=== PATIENT | male | born 1975 | race Caucasian/White ===

== ENCOUNTER 2016-09-25 14:36 | Emergency (ER) | payer MEDICARE | END 2016-09-25 17:14 | disposition home or self-care (01) | LOC: D.ER 14:36 | DX: M25.572 Pain in left ankle and joints of left foot (principal); F17.200 Nicotine dependence, unspecified, uncomplicated ==

== ENCOUNTER 2016-12-18 09:13 | Emergency (ER) | payer MEDICARE | END 2016-12-18 09:55 | disposition home or self-care (01) | LOC: D.ER 09:13 | DX: L03.114 Cellulitis of left upper limb (principal) ==

== ENCOUNTER 2017-01-04 10:02 | Emergency (ER) | payer MEDICARE | END 2017-01-04 15:00 | disposition left against medical advice (07) | LOC: D.ER 10:02 | DX: Z02.9 Encounter for administrative examinations, unspecified (principal) ==

== ENCOUNTER 2017-01-12 16:35 | Emergency (ER) | payer MEDICARE ==
[2017-01-12 17:37] LABS: BASOPHILS 0.1 % (0-2); EOSINOPHILS 0.3 % (0-7); HEMATOCRIT 41.1 % (42.0-54.0); HEMOGLOBIN 14.2 g/dL (13.5-17.5); IMMATURE GRANULOCYTES 0.3 % (0-5); MCH 31.2 pg (26.0-34.0); MCHC 34.5 g/dL (31.0-37.0); MCV 90.3 fL (80.0-100.0); MEAN PLATELET VOLUME 10.1 fL (7.4-10.4); MONOCYTES 14.1 % (2-11); NEUTROPHILS 62.2 % (40-80); PLATELET COUNT 212 10x3/uL (130-400); RBC 4.55 10x6/uL (4.20-6.10); RDW 13.6 % (11.5-14.5); WBC 7.9 10x3/uL (4.8-10.8)
[2017-01-12 17:53] LABS: ALBUMIN 4.4 g/dL (3.4-5.0); ALKALINE PHOSPHATASE 75 U/L (46-116); ALT (SGPT) 34 U/L (10-68); CALC OSMOLALITY 279 mosm/kg (275-300); CALCIUM 9.5 mg/dL (8.5-10.1); CARBON DIOXIDE 25.3 mmol/L (21.0-32.0); CHLORIDE - SERUM 101 mmol/L (98-107); GLUCOSE 125 mg/dL (74-106); POTASSIUM - SERUM 3.4 mmol/L (3.5-5.1); PROTEIN - SERUM 7.9 g/dL (6.4-8.2); SODIUM 138 mmol/L (136-145); UREA NITROGEN 22 mg/dL (7-18); eGFR NON AFRICAN AMERICAN 87 mL/min (90-120)
[2017-01-12 18:20] LABS: UDS - AMPHET POSITIVE QUAL (NEGATIVE); UDS - BARB NEGATIVE QUAL (NEGATIVE); UDS - BENZO NEGATIVE QUAL (NEGATIVE); UDS - COCAINE NEGATIVE QUAL (NEGATIVE); UDS - METH NEGATIVE QUAL (NEGATIVE); UDS - OPIATE NEGATIVE QUAL (NEGATIVE); UDS - PCP NEGATIVE QUAL (NEGATIVE); UDS - THC NEGATIVE QUAL (NEGATIVE)
[2017-01-12 18:32] LABS: APPEARANCE HAZY (CLEAR); BILIRUBIN NEGATIVE (NEGATIVE); COLOR DK YELLOW (YELLOW); GLUCOSE NEGATIVE (NEGATIVE); KETONE MODERATE mg/dL (NEGATIVE); LEUKOCYTE ESTERASE TRACE (NEGATIVE); NITRITE NEGATIVE (NEGATIVE); PROTEIN TRACE mg/dL (NEGATIVE); UROBILINOGEN NORMAL (NORMAL)
[2017-01-12 18:33] LABS: BACTERIA FEW /hpf (NONE SEEN); EPITHELIAL CELLS 0-5 /hpf (0-5); HYALINE CAST OCC /lpf (NONE SEEN); MUCUS >1+ /lpf (NONE SEEN); RED CELLS - URINE 0-5 /hpf (0-5); SPERMATOZOA PRESENT /hpf (NONE SEEN); WHITE CELLS - URINE 0-5 /hpf (0-5)
== END 2017-01-12 19:37 | disposition home or self-care (01) ==
LOC: D.ER 16:35
PROVIDERS: Emergency Medicine
DX: F19.10 Other psychoactive substance abuse, uncomplicated (principal); F32.9 Major depressive disorder, single episode, unspecified

== ENCOUNTER 2017-01-24 11:49 | Emergency (ER) | payer MEDICARE | END 2017-01-24 15:10 | disposition home or self-care (01) | LOC: D.ER 11:49 | DX: K08.89 Other specified disorders of teeth and supporting structures (principal); F17.200 Nicotine dependence, unspecified, uncomplicated ==

== ENCOUNTER 2017-05-01 07:58 | Emergency (ER) | payer MEDICARE | END 2017-05-01 08:31 | disposition home or self-care (01) | LOC: D.ER 07:58 | DX: M79.672 Pain in left foot (principal) ==

== ENCOUNTER 2017-06-05 10:14 | Emergency (ER) | payer MEDICARE | END 2017-06-05 11:45 | disposition left against medical advice (07) | LOC: D.ER 10:14 | DX: M19.072 Primary osteoarthritis, left ankle and foot (principal); F17.200 Nicotine dependence, unspecified, uncomplicated ==

== ENCOUNTER 2017-12-09 10:25 | Emergency (ER) | payer MEDICARE | END 2017-12-09 11:33 | disposition home or self-care (01) | LOC: D.ER 10:25 | DX: S05.02XA Injury of conjunctiva and corneal abrasion without foreign body, left eye, initial encounter (principal); X58.XXXA Exposure to other specified factors, initial encounter; Y93.89 Activity, other specified; Y92.89 Other specified places as the place of occurrence of the external cause; I10 Essential (primary) hypertension ==

== ENCOUNTER 2017-12-09 21:24 | Emergency (ER) | payer MEDICARE ==
[2017-12-10 01:22] LABS: BASOPHILS 0.2 % (0-2); EOSINOPHILS 2.8 % (0-7); HEMATOCRIT 41.7 % (42.0-54.0); HEMOGLOBIN 14.3 g/dL (13.5-17.5); IMMATURE GRANULOCYTES 0.1 % (0-5); LYMPHOCYTES 30.9 % (15-50); MCHC 34.3 g/dL (31.0-37.0); MCV 90.5 fL (80.0-100.0); MEAN PLATELET VOLUME 10.1 fL (7.4-10.4); MONOCYTES 8.2 % (2-11); NEUTROPHILS 57.8 % (40-80); PLATELET COUNT 254 10x3/uL (130-400); RBC 4.61 10x6/uL (4.20-6.10); RDW 13.2 % (11.5-14.5); WBC 9.4 10x3/uL (4.8-10.8)
[2017-12-10 01:31] LABS: ALBUMIN 4.4 g/dL (3.4-5.0); ALKALINE PHOSPHATASE 73 U/L (46-116); ALT (SGPT) 37 U/L (10-68); CALC OSMOLALITY 276 mosm/kg (275-300); CALCIUM 9.3 mg/dL (8.5-10.1); CHLORIDE - SERUM 102 mmol/L (98-107); GLUCOSE 105 mg/dL (74-106); POTASSIUM - SERUM 3.7 mmol/L (3.5-5.1); PROTEIN - SERUM 7.8 g/dL (6.4-8.2); SODIUM 138 mmol/L (136-145); UREA NITROGEN 16 mg/dL (7-18); eGFR NON AFRICAN AMERICAN 87 mL/min (90-120)
[2017-12-10 05:17] LABS: APPEARANCE CLEAR (CLEAR); COLOR DK YELLOW (YELLOW); SPECIFIC GRAVITY 1.015 (1.005-1.020)
[2017-12-10 05:18] LABS: BILIRUBIN 2+ (NEGATIVE); GLUCOSE NEGATIVE (NEGATIVE); KETONE NEGATIVE (NEGATIVE); NITRITE NEGATIVE (NEGATIVE); PROTEIN NEGATIVE (NEGATIVE); UROBILINOGEN NORMAL (NORMAL)
[2017-12-10 05:28] LABS: UDS - AMPHET POSITIVE QUAL (NEGATIVE); UDS - BARB NEGATIVE QUAL (NEGATIVE); UDS - BENZO NEGATIVE QUAL (NEGATIVE); UDS - COCAINE NEGATIVE QUAL (NEGATIVE); UDS - OPIATE POSITIVE QUAL (NEGATIVE); UDS - PCP NEGATIVE QUAL (NEGATIVE); UDS - THC POSITIVE QUAL (NEGATIVE)
== END 2017-12-10 07:50 | disposition short-term general hospital (02) ==
LOC: D.ER 21:24
PROVIDERS: Family Medicine
DX: F31.9 Bipolar disorder, unspecified (principal); F23 Brief psychotic disorder; R45.851 Suicidal ideations; I10 Essential (primary) hypertension

== ENCOUNTER 2018-07-16 02:14 | Emergency (ER) | payer MEDICARE ==
[~2018-07-16] VITALS: Ht 185.4 cm; Wt 104.3 kg
[2018-07-16 02:19] VITALS: Ht 185.4 cm; Wt 104.3 kg
[2018-07-16] MEDS ORDERED: NAPROSYN500 MG PO (02:36)
[2018-07-16] MEDS ORDERED: CLEOCIN HCL300 MG PO (02:36)
[2018-07-16 02:44] VITALS: BP 128/75
== END 2018-07-16 02:45 | disposition home or self-care (01) ==
LOC: D.ER 02:14
DX: L02.415 Cutaneous abscess of right lower limb (principal); G89.29 Other chronic pain; F17.200 Nicotine dependence, unspecified, uncomplicated

== ENCOUNTER → 2018-10-23 07:48 | Outpatient (CLI) | payer MEDICARE ==
[~2018-10-23 07:48] MED LIST: CLEOCIN HCL300 MG PO; NAPROSYN500 MG PO
== END | disposition home or self-care (01) ==
LOC: D.US 07:48
PROVIDERS: ATTEND Family Medicine
DX: R10.11 Right upper quadrant pain (principal)

== ENCOUNTER → 2018-11-27 09:32 | Outpatient (CLI) | payer MEDICARE ==
--- NOTE | 2018-11-26 10:08 | NUR ---
PATIENT'S PIPIDA SCAN WAS SCHEDULED FOR 11/26/18 AT 0930. UPON ARRIVING TO THE DEPARTMENT AND SPEAKING WITH HIM, HE STATED HE WAS NOT FASTING. HAD COFFEE WITH CREAM AND SUGAR AT APPROX 0730. BECAUSE OF THIS, HIS APPOINTMENT NEEDED TO BE RESCHEDULED. HE WAS OFFERED TO COME BACK LATER IN THE AFTERNOON BUT OPTED FOR TOMORROW, 11/27/18, AT 0930.
== END | disposition home or self-care (01) ==
LOC: D.NM 11-26 09:29
PROVIDERS: ATTEND Family Medicine
DX: R10.11 Right upper quadrant pain (principal)

== ENCOUNTER 2019-01-28 09:55 | Day surgery (SDC) | payer MEDICARE ==
[~2019-01-28] VITALS: Ht 185.4 cm; Wt 117.5 kg
[2019-01-28 11:46] VITALS: BP 120/81; Ht 185.4 cm; Wt 117.5 kg
[2019-01-28] MEDS ORDERED: HYDROCODON-ACE1 EAC7 PO (13:30)
--- NOTE | 2019-01-29 07:50 | OP ---
PATIENT NAME: JULIAN WEST MEDICAL RECORD: [id number] :73 LOCATION:[facility] ADMISSION DATE: SURGEON: ARLETTE SINGH MD DATE OF OPERATION: 01/28/2019 SURGEON: Arlette Singh MD (JJ) PREOPERATIVE DIAGNOSIS: Posterior left flank mass. POSTOPERATIVE DIAGNOSIS: Posterior left flank sebaceous cyst. ANESTHESIA: General. COMPLICATIONS: None. SPECIMENS: Sebaceous cyst, 8 x 6 x 4 cm. Case was clean. PROCEDURE: Excisional biopsy of sebaceous cyst, 8 x 6 x 4 cm. OPERATIVE COURSE: After consent was obtained, the patient was taken to the operating room and placed in the supine position on the operating table. Next, general anesthesia was given. The patient was then placed in right lateral decubitus position. A time-out was taken to confirm the correct patient and procedure. A 20 cc of local anesthetic was injected above the posterior left back mass. Skin incision was made with #10 blade scalpel. Dissection was then continued with Metzenbaum scissors. A cyst wall was immediately encountered at the edge of the dermis. The cyst was then circumferentially dissected using sharp scissor dissection. The cyst was excised in its entirety and sent for permanent pathology. The cyst size was 8 x 6 x 4 cm. The subcutaneous tissue was then copiously irrigated and suctioned. Hemostasis was obtained with electrocautery. The wound was closed in 3 layers. The deep subcutaneous layer was closed with 3-0 Vicryl suture. Superficial was closed with 3-0 Vicryl suture. Skin was closed with 4-0 Monocryl, Mastisol, and Steri-Strips. At the end of the case, all needle and instrument counts were correct. No complications occurred. The patient was extubated and transferred to the PACU in satisfactory condition. TRANSINT:[id number] Voice Confirmation ID: [id number] DOCUMENT ID: [id number] ARLETTE SINGH MD at 0750 CC: [id number] DICTATION DATE: 01/28/19 1335 [employer] MA[employer]ER: 01/28/19 1422 [facility] [place] 01/28/19 [facility] [address] [place] [address]
== END 2019-01-28 16:39 | disposition home or self-care (01) ==
LOC: D.OPS 09:55 → D.PAN 11:45 → D.OPS 11:45
PROVIDERS: ATTEND Surgery
DX: L72.3 Sebaceous cyst (principal); Z01.812 Encounter for preprocedural laboratory examination

== ENCOUNTER 2019-01-30 16:54 | Emergency (ER) | payer MEDICARE ==
[~2019-01-30] VITALS: Ht 185.4 cm; Wt 118.2 kg
[~2019-01-30 16:54] MED LIST changes: +HYDROCODON-ACE1 EAC7 PO
[2019-01-30 17:05] VITALS: Ht 185.4 cm; Wt 118.2 kg
[2019-01-30] MEDS ORDERED: AMOXICILLIN500 M1 PO (17:07)
[2019-01-30 17:39] LABS: BASOPHILS 0.3 % (0-2); EOSINOPHILS 1.7 % (0-7); HEMATOCRIT 42.2 % (42.0-54.0); HEMOGLOBIN 14.8 g/dL (13.5-17.5); IMMATURE GRANULOCYTES 0.2 % (0-5); LYMPHOCYTES 24.7 % (15-50); MCH 31.2 pg (26.0-34.0); MCHC 35.1 g/dL (31.0-37.0); MEAN PLATELET VOLUME 9.9 fL (7.4-10.4); NEUTROPHILS 63.1 % (40-80); RBC 4.74 10x6/uL (4.20-6.10); RDW 13.2 % (11.5-14.5); WBC 10.3 10x3/uL (4.8-10.8)
[2019-01-30 18:02] LABS: ALKALINE PHOSPHATASE 75 U/L (46-116); ALT (SGPT) 43 U/L (10-68); BILIRUBIN - TOTAL 0.41 mg/dL (0.2-1.3); CALC OSMOLALITY 275 mosm/kg (275-300); CALCIUM 10.4 mg/dL (8.5-10.1); CARBON DIOXIDE 27.8 mmol/L (21.0-32.0); CHLORIDE - SERUM 99 mmol/L (98-107); CREATININE - SERUM 0.9 mg/dL (0.6-1.3); GLUCOSE 98 mg/dL (74-106); POTASSIUM - SERUM 4.1 mmol/L (3.5-5.1); PROTEIN - SERUM 7.9 g/dL (6.4-8.2); SODIUM 138 mmol/L (136-145); UREA NITROGEN 12 mg/dL (7-18); eGFR NON AFRICAN AMERICAN > 90 mL/min (90-120)
[2019-01-30 18:27] LABS: PLATELET COUNT 193 10x3/uL (130-400)
[2019-01-30] MEDS ORDERED: CLEOCIN HCL300 MG PO (22:06)
[2019-01-30] MEDS ORDERED: ONDANSETRON8 MG/TAB PO (22:09)
[2019-01-30 23:25] VITALS: BP 147/88
== END 2019-01-30 23:25 | disposition home or self-care (01) ==
LOC: D.ER 16:54
PROVIDERS: Emergency Medicine
DX: T81.40XA Infection following a procedure, unspecified, initial encounter (principal)

== ENCOUNTER 2019-03-02 11:56 | Emergency (ER) | payer MEDICARE ==
[~2019-03-02] VITALS: Ht 185.4 cm; Wt 115.9 kg
[~2019-03-02 11:56] MED LIST changes: +AMOXICILLIN500 M1 PO; +ONDANSETRON8 MG/TAB PO
[2019-03-02 12:00] VITALS: Ht 185.4 cm; Wt 115.9 kg
[2019-03-02] MEDS ORDERED: BACLOFEN20 M1 PO (13:21)
[2019-03-02] MEDS ORDERED: VOLTAREN75 MG PO (13:21)
[2019-03-02 13:44] VITALS: BP 142/78
== END 2019-03-02 13:44 | disposition home or self-care (01) ==
LOC: D.ER 11:56
DX: M25.551 Pain in right hip (principal); M79.18 Myalgia, other site

== ENCOUNTER → 2019-03-26 12:49 | Outpatient (CLI) | payer MEDICARE ==
[2019-03-02 12:00] VITALS: BMI 33.7
--- NOTE | 2019-03-19 16:12 | NUR ---
PT CALLED NO BLOOD THINNERS NOTED.
[~2019-03-26 12:49] MED LIST changes: +BACLOFEN20 M1 PO; +HYDROCODON-ACE1 EA10 PO; +ULTRAM50 MG PO; +VOLTAREN75 MG PO
== END | disposition home or self-care (01) ==
LOC: D.RAD 03-20 13:30 → D.SP 03-20 13:30
PROVIDERS: ATTEND Orthopaedic Surgery
DX: M25.851 Other specified joint disorders, right hip (principal); Z01.812 Encounter for preprocedural laboratory examination

== ENCOUNTER 2019-04-07 21:33 | Emergency (ER) | payer MEDICARE ==
[~2019-04-07] VITALS: Ht 185.4 cm; Wt 115.7 kg
[~2019-04-07 21:33] MED LIST changes: -HYDROCODON-ACE1 EA10 PO; -ULTRAM50 MG PO
[2019-04-07 21:39] VITALS: Ht 185.4 cm; Wt 115.7 kg
[2019-04-07] MEDS ORDERED: ULTRAM50 MG PO (21:41)
[2019-04-07] MEDS ORDERED: HYDROCODON-ACE1 EA10 PO (22:48)
[2019-04-07 22:57] VITALS: BP 141/77
== END 2019-04-07 22:57 | disposition home or self-care (01) ==
LOC: D.ER 21:33
DX: M25.551 Pain in right hip (principal)

== ENCOUNTER 2020-05-09 18:53 | Emergency (ER) | payer MEDICARE ==
[~2020-05-09] VITALS: Ht 185.4 cm; Wt 95.5 kg
[~2020-05-09 18:53] MED LIST changes: +HYDROCODON-ACE1 EA10 PO; +ULTRAM50 MG PO
[2020-05-09 18:56] VITALS: Ht 185.4 cm; Wt 95.5 kg
[2020-05-09 19:41] LABS: BASOPHILS 0.1 % (0-2); EOSINOPHILS 1.6 % (0-7); HEMATOCRIT 37.6 % (42.0-54.0); HEMOGLOBIN 12.7 g/dL (13.5-17.5); IMMATURE GRANULOCYTES 0.2 % (0-5); LYMPHOCYTES 15.4 % (15-50); MCH 31.1 pg (26.0-34.0); MCHC 33.8 g/dL (31.0-37.0); MCV 92.2 fL (80.0-100.0); MEAN PLATELET VOLUME 10.1 fL (7.4-10.4); MONOCYTES 5.7 % (2-11); PLATELET COUNT 213 10x3/uL (130-400); RBC 4.08 10x6/uL (4.20-6.10)
[2020-05-09 19:46] LABS: BILIRUBIN NEGATIVE (NEGATIVE); KETONE NEGATIVE (NEGATIVE); NITRITE NEGATIVE (NEGATIVE); UROBILINOGEN NORMAL mg/dL (< 2)
[2020-05-09 19:49] LABS: CALC OSMOLALITY 277 mosm/kg (275-300); CALCIUM 7.9 mg/dL (8.5-10.1); CARBON DIOXIDE 27.6 mmol/L (21.0-32.0); CHLORIDE - SERUM 101 mmol/L (98-107); POTASSIUM - SERUM 3.4 mmol/L (3.5-5.1); SODIUM 137 mmol/L (136-145); UREA NITROGEN 15 mg/dL (7-18); eGFR NON AFRICAN AMERICAN 86 mL/min (90-120)
[2020-05-09 19:51] LABS: GLUCOSE 149 mg/dL (74-106)
[2020-05-09 19:56] LABS: UDS - AMPHET POSITIVE QUAL (NEGATIVE); UDS - BARB NEGATIVE QUAL (NEGATIVE); UDS - BENZO NEGATIVE QUAL (NEGATIVE); UDS - COCAINE NEGATIVE QUAL (NEGATIVE); UDS - OPIATE NEGATIVE QUAL (NEGATIVE); UDS - PCP NEGATIVE QUAL (NEGATIVE); UDS - THC POSITIVE QUAL (NEGATIVE)
[2020-05-09 20:23] LABS: ALBUMIN 3.3 g/dL (3.4-5.0); ALKALINE PHOSPHATASE 66 U/L (30-120); ALT (SGPT) 67 U/L (10-68); BILIRUBIN - TOTAL 0.24 mg/dL (0.2-1.3); PROTEIN - SERUM 6.5 g/dL (6.4-8.2)
[2020-05-09 20:29] LABS: CREATINE KINASE 2812 UL (21-232)
[2020-05-09 20:31] LABS: CKMB 12.9 U/L (0.0-3.6)
[2020-05-09 22:13] VITALS: BP 146/70
== END 2020-05-09 22:15 | disposition home or self-care (01) ==
LOC: D.ER 18:53
PROVIDERS: Family Medicine
DX: M62.82 Rhabdomyolysis (principal); M79.10 Myalgia, unspecified site; F15.10 Other stimulant abuse, uncomplicated; D64.9 Anemia, unspecified; R74.0 Nonspecific elevation of levels of transaminase and lactic acid dehydrogenase [LDH]; E83.51 Hypocalcemia; E87.6 Hypokalemia; R73.9 Hyperglycemia, unspecified

== ENCOUNTER 2021-02-15 18:32 | Emergency (ER) | payer MEDICARE ==
[~2021-02-15] VITALS: Ht 185.4 cm; Wt 2.8 kg
[2021-02-15 18:41] VITALS: BP 156/65; Ht 185.4 cm; Wt 2.8 kg
== END 2021-02-15 20:15 | disposition left against medical advice (07) ==
LOC: D.ER 18:32
DX: T84.53XA Infection and inflammatory reaction due to internal right knee prosthesis, initial encounter (principal); Z53.21 Procedure and treatment not carried out due to patient leaving prior to being seen by health care provider

== ENCOUNTER 2021-02-18 15:52 | Emergency (ER) | payer MEDICARE, MEDICAID ==
[~2021-02-18] VITALS: Ht 185.4 cm; Wt 100.0 kg
[2021-02-18 16:36] VITALS: Ht 185.4 cm; Wt 100.0 kg
[2021-02-18 17:30] LABS: BASOPHILS 0.6 % (0-2); EOSINOPHILS 1.5 % (0-7); HEMATOCRIT 46.5 % (42.0-54.0); HEMOGLOBIN 15.7 g/dL (13.5-17.5); LYMPHOCYTES 24.6 % (15-50); MCH 30.1 pg (26.0-34.0); MCHC 33.8 g/dL (31.0-37.0); MCV 89.2 fL (80.0-100.0); MEAN PLATELET VOLUME 8.7 fL (7.4-10.4); MONOCYTES 5.6 % (2-11); NEUTROPHILS 67.7 % (40-80); RBC 5.21 10x6/uL (4.20-6.10); RDW 13.9 % (11.5-14.5); WBC 10.8 10x3/uL (4.8-10.8)
[2021-02-18 17:33] LABS: PLATELET COUNT 297 10x3/uL (130-400)
[2021-02-18 17:37] LABS: CALC OSMOLALITY 285 mosm/kg (275-300); CALCIUM 9.5 mg/dL (8.5-10.1); CARBON DIOXIDE 24.2 mmol/L (21.0-32.0); CHLORIDE - SERUM 104 mmol/L (98-107); CREATININE - SERUM 1.3 mg/dL (0.6-1.3); GLUCOSE 110 mg/dL (74-106); POTASSIUM - SERUM 3.7 mmol/L (3.5-5.1); SODIUM 142 mmol/L (136-145); UREA NITROGEN 19 mg/dL (7-18); eGFR NON AFRICAN AMERICAN 63 mL/min (90-120)
[2021-02-18 17:38] LABS: BILIRUBIN NEGATIVE (NEGATIVE); KETONE 1+ mg/dL (< 1+); NITRITE NEGATIVE (NEGATIVE); PH 5.5 (5.0-8.0); SQUAMOUS EPITHELIAL <1 HPF (0-4); UROBILINOGEN NORMAL mg/dL (< 2); WHITE CELLS - URINE <1 HPF (0-1)
[2021-02-18 17:42] LABS: ALKALINE PHOSPHATASE 80 U/L (30-120); ALT (SGPT) 30 U/L (10-68); BILIRUBIN - TOTAL 0.16 mg/dL (0.2-1.3); MAGNESIUM - SERUM 2.1 mg/dL (1.8-2.4); PROTEIN - SERUM 7.5 g/dL (6.4-8.2)
[2021-02-18 17:45] LABS: ACETAMINOPHEN < 10.0 ug/mL (10.0-30.0)
[2021-02-18 17:52] LABS: UDS - AMPHET NEGATIVE QUAL (NEGATIVE); UDS - BARB NEGATIVE QUAL (NEGATIVE); UDS - BENZO NEGATIVE QUAL (NEGATIVE); UDS - COCAINE NEGATIVE QUAL (NEGATIVE); UDS - OPIATE NEGATIVE QUAL (NEGATIVE); UDS - PCP NEGATIVE QUAL (NEGATIVE); UDS - THC NEGATIVE QUAL (NEGATIVE)
--- NOTE | 2021-02-18 18:58 | NUR ---
dr. navarrete notified and sitter ordered. sitter in line of sight. notified charge nurse and attending in regards to assessment findings. resources given to pt and safety plan intiated.
[2021-02-19 02:27] VITALS: BP 110/64
== END 2021-02-19 10:00 ==
LOC: D.ER 15:52
PROVIDERS: Family Medicine
DX: R45.851 Suicidal ideations (principal); F32.9 Major depressive disorder, single episode, unspecified